=== PATIENT | female | born 1995 | race Caucasian/White ===

== ENCOUNTER 2017-06-03 14:38 | Inpatient (IN) | payer OTHER ==
[~2017-06-03] VITALS: Ht 170.2 cm; Wt 117.5 kg
[~2017-06-03 14:38] MED LIST: HYDR-4003 PO; KLO5T PO; LEVO100C2 PO; LORA1TAB PO; METH500T PO; OXYC-466 PO
[2017-06-03] MEDS ORDERED: Carboprost 250 mCg/mL Inj IM PRN (16:35)
[2017-06-03] MEDS ORDERED: Methylergonovine 0.2 mg/mL Inj IM PRN (16:35)
[2017-06-03] MEDS ORDERED: Sodium Chloride LOK Flush 10 mL Syringe IVFLUSH PRN (16:35)
[2017-06-03] MEDS ORDERED: Hemorrhage Kit, Post Partum XX ONE (16:35)
[2017-06-03] MEDS ORDERED: Lactated Ringer's 1,000 ML IV PRN (16:35)
[2017-06-03] MEDS ORDERED: Oxytocin 30 Units/500 mL LR 30 UNITS in IV Premix 1 EACH IV PRN (16:35)
[2017-06-03] MEDS ORDERED: Oxytocin 10 Unit/mL Inj IM PRN (16:35)
[2017-06-03] MEDS ORDERED: Labetalol 5 mg/mL 4 mL Inj IV PRN (16:45)
[2017-06-03] MEDS ORDERED: PREN1TAB87 PO (17:14)
[2017-06-03] MEDS ORDERED: HYDR-4003 PO (17:15)
[2017-06-03] MEDS ORDERED: FERR-83 PO (17:15)
--- NOTE | 2017-06-03 17:33 | HP ---
[address] [address] HISTORY AND PHYSICAL PATIENT: ALLYSON FELDER : 1995 MR#: [id number] ADMIT: 06/03/2017 JOB ID: [id number] HISTORY OF PRESENT ILLNESS: The patient is a 22-year-old 1 para 0 at 38 weeks and 3 days with estimated due date of June 14, 2017, who is being admitted with abnormal blood pressure, -induced hypertension, biophysical profile 4/8. The patient has been having biophysical profiles because of poor care. She entered care at 33 weeks; did not know that she was until that time. Initial ultrasound at 33 weeks showed suspected IUGR, 3%. Followup ultrasound showed estimated weight 13th percentile and then ultrasound on May 20, 2017 showed estimated weight of 37th percentile. The patient has anxiety for which she has been using clonazepam throughout . surveillance started as soon as she entered care with us. Today's biophysical profile was 4/8. The patient was placed on continuous heart rate monitoring and there was no accelerations for 40 minutes, the heart rate was nonreassuring. PAST MEDICAL HISTORY: Mild hypothyroidism. Synthroid was stopped on April 28, 2017. Mild asthma. Medical history noncontributory. ALLERGIES: SULFA AND CODEINE. FAMILY HISTORY: Diabetes type 2. SOCIAL HISTORY: The patient denies smoking, alcohol, recreational drug use. LABORATORY: labs were reviewed. She is blood type O positive, rubella immune, varicella immune. Group B strep negative. PHYSICAL EXAMINATION: Vital signs: Blood pressure 156/82, pulse 90, respiratory rate 18, temperature 36.7. General: Awake, alert, oriented x3. Anxious. HEENT: PERRLA. Chest: Good respiratory effort. No adventitious sounds. Cardiovascular: Regular rate and rhythm. Abdomen: Gravid. Nondistended, nontender. Extremities: No pitting edema. PLASTER FOREMAN: Vertex presentation. Intact membranes. The cervix is about 50% effaced, fingertip, nondilated, station -3. ASSESSMENT AND PLAN: The patient is a 22-year-old 1 para 0 at 38 weeks and 3 days being admitted for medically indicated induction of labor because of unstable blood pressure and biophysical profile 4/8. Variability of the heart tracing is moderate and no accelerations were seen. The patient will be placed on continuous heart rate monitoring. The cervix is not favorable. Cervical vaginal insert will be placed 10 mg PV 1 dose until morning. We discussed the potential risks and benefits of the induction of labor, possible section in case of failed induction and distress. Informed consent was obtained. The patient was explained that if her blood pressure stays high we may initiate labetalol protocol. Meanwhile we are sending preeclampsia labs and urine for protein/creatinine ratio. Her anxiety is controlled so far, to avoid any possibility of panic attack during labor Xanax p.r.n. was written. KELLID
[2017-06-03 17:39] LABS: Mean Corpuscular Hemoglobin 26.6 pg (27.0-35.0); Mean Corpuscular Volume 80.9 fL (81-100)
[2017-06-03] MEDS ORDERED: ALPRAZolam 0.5 mg Tablet ONE (18:05)
[2017-06-03] MEDS: ALPRAZolam 0.5 mg Tablet PO SCH (18:07)
[2017-06-03] MEDS ORDERED: diphenhydrAMINE 50 mg Capsule PO ONE (22:20)
[2017-06-03] MEDS: Ondansetron 2 mg/mL 2 mL Inj IVPUSH PRN (23:16)
[2017-06-04] MEDS: Ondansetron 2 mg/mL 2 mL Inj IVPUSH PRN ×2 (06:33→13:03)
[2017-06-04] MEDS: ALPRAZolam 0.5 mg Tablet PO SCH ×2 (06:55→23:33)
[2017-06-04] MEDS ORDERED: Lactated Ringer's 1,000 ML IV SCH (07:58)
--- NOTE | 2017-06-04 07:59 | PCM.PNOBIP ---
Subjective Date of Service Jun 04, 2017 Delivery plan: Spontaneous Vaginal Delivery Visit History 22-year-old 1 para 0 at 38 weeks and 3 days with estimated due date of June 14, 2017, who is being admitted with abnormal blood pressure, -induced hypertension, biophysical profile 4/8. The patient has been having biophysical profiles because of poor care. She was late to care at 33 weeks; did not know that she was until that time. Initial ultrasound at 33 weeks showed suspected IUGR, 3%. Followup ultrasound showed estimated weight 13th percentile and then ultrasound on May 20, 2017 showed estimated weight of 37th percentile. The patient has anxiety for which she has been using clonazepam throughout . surveillance started as soon as she entered care with us. Today's biophysical profile was 4/8. The patient was placed on continuous heart rate monitoring and there was no accelerations for 40 minutes, the heart rate was nonreassuring. She has a positive Cannibus urine tox. Subjective Patient is having some baseline anxiety that is responding to xanex. She is currently not having a headache or hand/leg swelling. She states her contractions are about 6-8 minutes apart. She has not had any vaginal fluid drainage or bleeding. Group B Strep Results: Negative Rubella: Immune Blood Type: O RH Type: Positive Labs Laboratory Tests 06/03/17 17:34: White Blood Count 11.2, Red Blood Count 4.51, Hemoglobin 12.0, Hematocrit 36.5, Mean Corpuscular Volume 80.9, Mean Corpuscular Hemoglobin 26.6, Mean Corpuscular Hemoglobin Concent 32.9, Red Cell Distribution Width 13.5, Platelet Count 356 Exam Vital Signs Vital Signs Contraction frequency in minutes: MVUs: Vital Signs: VS reviewed, stable Heart Tracings Heart Tones Baseline 150 bpm Heart Rate Variability: Moderate Heart Rate Accelleration: Present Heart Rate Deceleration: Absent Heart Rate Category: I Tocometry/IUPC Contraction frequency in minutes: MVUs: Sterile Vaginal Exam Cervical Dilation: 1 cm Cervical Effacement: 70 % Station: -3 Exam Abdomen: Fundus firm, Abdomen non-tender Extremities: No cords, No tenderness/swelling, No edema Lungs: Clear to Auscultation Heart: Exam Unremarkable General: Alert, Oriented X3 OB Intrapartum Assessment/Plan Assessment Non reassuring testing (BPP 4/10) Induction of labor Problems: (1) Abnormal test Plan: - continue with induction of labor - will change to cytotec today, cervidil insert removed. - will continue to monitor closely Status: Acute ICD Code: O28.9 (2) Non-reassuring status Status: Acute ICD Code: [id number] Intrapartum Pain Management: May have epidural when desired Pain Evaluation: Adequate Pain Control Attending Statement The patient was seen and examined together with Dr.Brook Woo on 06/04/2017 and I agree with the history, exam and plan as outlined in the note above. Amanda Woo DO Jun 04, 2017 07:00 Domingo Michaels MD Jun 08, 2017 07:55
[2017-06-04] MEDS ORDERED: diphenhydrAMINE 50 mg Capsule PO PRN (08:00)
[2017-06-04] MEDS ORDERED: Misoprostol 25 mCg/0.25 Tablet VAGINAL SCH (08:00)
--- NOTE | 2017-06-04 15:06 | DRSVH ---
PROCEDURE: US OB BIOPHYSICAL PROFILE AND UMBILICAL DOPPLER INDICATIONS: PIH OUTSIDE/PRIOR DATING DATA: Last menstrual period (LMP): 08/21/2017. LMP-based estimated date of delivery (LINA): 05/28/2017. First dating scan (date and location): 04/27/2017 at [facility]. Estimated date of delivery (LINA) from first dating scan: 06/14/2017. TECHNIQUE: Real-time scanning was performed of the fetus for biophysical profile, with image documentation. Col or and pulse Doppler interrogation was also performed of the umbilical artery near its insertion into the placenta. COMPARISON: [facility] Ultrasound, US, US OB BIOPHYSICAL+UMB DOP, 06/03/2017, 13:33. FINDINGS: General: A single living intrauterine gestation is present. Presentation: Vertex. Placenta: Placental position is fundal, without previa. OB-CATERER HELPER Ultrasound Procedure Report Summary Fetus Summary Heart Rate: 158 bpm Gestational Age from initial dating scan: 38 weeks, 4 days Findings(Amniotic Sac) Amniotic Fluid Index (NIKOLAI): 16.80 cm Pelvis and Uterus Cervix Length (Mean): Not well-seen. Biophysical Profile Amniotic Fluid Volume: 2 Breathin Gross Body Movement: 2 Tone: 2 Biophysical Profile Sum Score: 6 Findings(Pelvic Vascular Structure) Umbilical Artery S/D Ratio: 2.78, 1.98, 2.05 IMPRESSION: 1. Biophysical profile score of 6/8 possible points. 2. Normal CORD Doppler. Dictated by: Jacob Mahoney [facility] Interpreted: Heather Nunez MD on 06/04/2017 at 12:56 Approved by: Heather Nunez MD, PhD on 06/04/2017 at 15:03
[2017-06-04] MEDS: fentaNYL-PF 50 mCg/mL 2 mL Inj IVPUSH PRN (21:56)
[2017-06-05] MEDS: fentaNYL-PF 50 mCg/mL 2 mL Inj IVPUSH PRN ×3 (00:55→05:43)
[2017-06-05] MEDS: Ondansetron 2 mg/mL 2 mL Inj IVPUSH PRN (07:07)
--- NOTE | 2017-06-05 08:32 | PCM.HPANE ---
Patient Data Surgeon Admitting Provider:Major Shirley MD Attending Provider:Major Shirley MD Primary Care Physician:Georgiana Kirkpatrick MD Other Provider:Karen Pérez Anesthesia Reason for Visit NST NST Ht/WT & BMI Body Mass Index Allergies Coded Allergies: Sulfa (Sulfonamide Antibiotics) (Verified Allergy, Unknown, swollen tongue and mouth, 08/15/16) codeine (Verified Allergy, Unknown, 08/15/16) Past Anesthesia History Anesthesia History: Denies:: Abnormal Airway Diabetes History Hx Diabetes?: No MRSA MRSA: No Medications Hypertension Medication: No Home Meds Incl Beta Kailey: No Active Scripts oxyCODONE-Acetaminophen 10-325 mg 1 Each Tablet2 Tablet PO Q6H PRN For Pain #50 TABLET Ref 0 Prov:Gold Dodson MD 08/15/16 Lorazepam 1 Mg Tablet1 Mg PO TID PRN For Anxiety #30 TABLET Ref 0 Prov:Gold Dodson MD 08/15/16 Methocarbamol (Robaxin)500 Mg [id number] Mg PO TID #9 TABLET Prov:Wang Licea DO 06/13/16 Reported Medications Hydrocodone-Acetaminophen 5-325 mg 1 Each Tablet1 Tablet PO Q4H PRN For Pain Ref 0 06/03/17 Ferrous Sulfate 325 Mg [id number] Mg PO DAILY 30 Days Ref 0 06/03/17 Vit W-Ca,Fe,FA(<1 mg) ( Vitamins)1 Each Tablet1 Each PO DAILY 06/03/17 Levothyroxine (Tirosint)100 Mcg [id number] Mcg PO DAILY 11/15/15 Hydrocodone-Acetaminophen 5-325 mg 1 Each Tablet1 Tablet PO Q6H PRN For Pain Ref 0 11/15/15 Clonazepam 0.5 Mg Tablet0.5 Mg PO TID PRN For Anxiety Ref 0 11/15/15 History History of ENT Problems?: No HEENT History: Denies:: Abnormal Airway Denture Type: None Teeth Condition: Within Normal Limits Hx of Heart Problems?: No Cardiovascular History: Denies:: Congestive Heart Failure Hypertension Hx of Respiratory Problem?: No Respiratory History: Denies:: Tuberculosis Hx Neurologic Problems?: No Hx of GI Problems?: No Hx of Problems?: No HX of Peritoneal Dialysis: No Female Hx: Positive for:: Currently Hx Musculoskeletal Problems?: Yes Musculoskeletal History: Positive for:: Back Injury Hx of Psycho/Social Problems?: No Hx Surgeries?: No Hx Diabetes: No Other History/Comment Patient seen in extremis when entering room. Hx obtained mostly from mother. Hx of spinal fusion. Hx Alcohol Use: NoHx Substance Use: No Smoking Status: Never Smoker Have You Smoked inLast 12 mo: No Stop/Bang Treated for Sleep Apnea?: No Do You Have a CPAP Machine?: No SHAKILA Risk Assessment: Low Risk, <3 Yes Risk Assessment Category Category 1A: Patient has history of documented sleep apnea, and HAS NOT received any narcotic, sedative or anesthesia administration during this stay. Category 1B: Patient has history of documented sleep apnea, and HAS received any narcotic , sedative or anesthesia administration during this stay Category 2: Patient has SUSPECTED Obstructive Sleep Apnea, and HAS received any narcotic , sedative or anesthesia administration during this stay. Category 3: Patient has SUSPECTED Obstructive Sleep Apnea and HAS NOT received narcotic, sedative or anesthesia administration during this stay. Category 4: Outpatient in Procedural Areas with known sleep apnea or who screen positive for High Risk via the STOP/BANG questionnaire. Exam Exam General Appearance: Oriented X3 HEENT/AIRWAY: MP 2 Lungs: Clear to Auscultation Heart: Exam Unremarkable Meds/Labs/Diagnostics Admission Meds Current Medications Alprazolam (Xanax) 0.5 mg TID PO Last administered on 06/03/17 18:07; Start at 20:30 Dinoprostone (Cervidil Vaginal Insert) 10 mg ONCE ONCE VAGINAL Last administered on 06/03/17 18:07; Start 06/03/17 at 16:35; Stop 06/03/17 at 16:45 ; Status DC Labs Test 06/03/17 16:47 06/03/17 17:14 06/03/17 17:15 06/03/17 17:34 Hold Urine Received (Received) Urine Random Creatinine 21mg/dL (16-392) Urine Random Total Protein 5mg/dL (0-15) Urine Protein/Creatinine Ratio 0.24 (0-200) Urine Opiates Screen Negative Urine Methadone Screen Negative Urine Barbiturates Screen Negative Urine Amphetamines Screen Negative Urine Benzodiazepines Screen Negative Urine Cocaine Metabolite Screen Negative Urine Cannabinoids Screen Positive White Blood Count 11.2th/mm3 (3.8-10.1) Red Blood Count 4.51mil/mm3 (3.90-5.20) Hemoglobin 12.0g/dL (12.0-15.6) Hematocrit 36.5% (35.0-46.0) Mean Corpuscular Volume 80.9fL (81-100) Mean Corpuscular Hemoglobin 26.6pg (27.0-35.0) Mean Corpuscular Hemoglobin Concent 32.9% (32.0-37.0) Red Cell Distribution Width 13.5% (12.3-15.4) Platelet Count 356bil/L (150-400) Uric Acid 6.3mg/dL (2.6-7.2) Aspartate Amino Transf (AST/SGOT) 13U/L (0-50) Alanine Aminotransferase (ALT/SGPT) 10U/L (0-32) Plan Impression Patient chart reviewed, patient interviewed and anesthestic plan with risks, benefits, and alternatives discussed, and informed consent obtained. NPO per Anesth. Guidelines: Yes ASA Physical Status: ASA2 Mod Systemic Disease Anesthetic Plan: Epidural Bene/Risks/Altern/Consents: Yes HP Complete Prior to Induction: Yes Zaheer Salas MD Jun 03, 2017 20:54 Julito Nguyen MD Jun 05, 2017 08:32
--- NOTE | 2017-06-05 08:33 | PCM.ANEP1 ---
Post Anesthesia PACU Phase 1 Assessment Anesthetic Administered: Epidural Level of Alertness: Awake, talking CRUZ's with Equal Strength: No Pain: No Pain Scale Score: 7 Nausea or Vomiting: No CV Function & Hydration Stable: No Airway Device: Oxygen Delivery: Room Air Lungs: Clear to Auscultation PACU Phase 2 Assessment Complications: No Follow up Care: N/A Patient Instructions Provided: N/A Julito Nguyen MD Jun 05, 2017 08:33
[2017-06-05] MEDS: Lactated Ringer's 1,000 ML IV SCH ×2 (08:38→20:47)
[2017-06-05] MEDS ORDERED: Oxytocin 10 Unit/mL Inj IM PRN (08:40)
[2017-06-05] MEDS ORDERED: Hemorrhage Kit, Post Partum XX ONE (08:40)
[2017-06-05] MEDS ORDERED: Oxytocin 30 Units/500 mL LR 30 UNITS in IV Premix 1 EACH IV PRN (08:40)
[2017-06-05] MEDS ORDERED: Carboprost 250 mCg/mL Inj IM PRN (08:40)
[2017-06-05] MEDS ORDERED: Benzocaine (Dermoplast) 20% 60 Gm Spray TOPICAL PRN (08:40)
[2017-06-05] MEDS ORDERED: LANOlin HPA 7 Gm Ointment TOPICAL PRN (08:40)
[2017-06-05] MEDS ORDERED: Methylergonovine 0.2 mg/mL Inj IM PRN (08:40)
[2017-06-05] MEDS: ALPRAZolam 0.5 mg Tablet PO SCH ×4 (09:18→20:30)
[2017-06-05] MEDS: oxyCODONE-Acetamin 5-325 mg Tablet PO PRN ×4 (09:19→21:47)
[2017-06-05] MEDS: Witch Hazel-Glycerin Pads TOPICAL PRN (09:19)
--- NOTE | 2017-06-05 11:03 | OP ---
[address] [address] OPERATIVE REPORT PATIENT: ALLYSON FELDER : 1995 MR#: [id number] ADMIT: 06/03/2017 JOB ID: [id number] DATE OF SURGERY: 06/05/2017 SURGEON: Major Shirley M.D. PREOPERATIVE DIAGNOSIS(ES): A 22-year-old 1, para 0 with gestational hypertension, biophysical profile 4/8, induction of labor. POSTOPERATIVE DIAGNOSIS(ES): A 22-year-old 1, para 1, spontaneous vaginal delivery at term. The patient is a 23-year-old 1, para 1 now, who came to Labor and Delivery on June 03, 2017, for induction of labor because of -induced hypertension and abnormal testing, biophysical profile was 4/8. The heart rate tracing at admission was having moderate variability but no accelerations. The risks and benefits of induction of labor were discussed with the patient and informed consent was obtained. On the cervical check, the cervix was fingertip, nondilated. The station of the head was high -3 to -4. So, following admission, Cervidil vaginal insert was placed for 12 hours and it was removed in the morning of June 04, 2017. At that time the patient was 2 cm dilated, 50% effaced, -2 station. Cook cervical ripening balloon was placed at 1 p.m. on June 04, 2017 and came at 1 a.m. June 05, 2017. The patient was re-examined in the morning of June 05, 2017. At 1 a.m. she was 4 cm dilated, 80% effaced, station -2. Induction was started with oxytocin. The patient received an epidural and when she was examined at 7 a.m. she was fully dilated at station +2. She started pushing at around the same time and underwent spontaneous vaginal delivery at 7:49 a.m. Delivered a female with a weight 2913 g. Apgars 9 at one minute and 9 at five minutes. She had third degree midline laceration, the third stage of labor was fast and disorganized due to anxiety disorder of the patient. The laceration was repaired with three layers of 3-0 Vicryl. The placenta was delivered at 8:04 a.m., was examined to be intact with three-vessel cord. Estimated blood loss was 350 mL.
--- NOTE | 2017-06-05 11:14 | NUR ---
Social Work Note D/A: SECTION HAND received report from senior product development manager that Pt plans to relinquish and adoptive parents are currently on FBC with BB in the room with them. senior product development manager reported that adoption paperwork has not been completed as of yet and adoptive parents had requested to speak with SECTION HAND. P: SECTION HAND noted that no order has yet been entered and explained that this would need to be done prior to SECTION HAND meeting with Pt or family. SECTION HAND explained that as long as a consultation was ordered, SECTION HAND would be able to see Pt and family around 1330 today. Lacey Leal, MANOLO, AAC
--- NOTE | 2017-06-05 16:21 | NUR ---
Social Work Note: Support D/A: Pt is a 22 year old female who delivered BB on 06/05/2017. Pt indicated her intent to relinquish BB to C staff and gave permission for adoptive parents to care for BB once delivered. staff physical therapist requested that BETTING CLERK check in with Pt and with adoptive parents to provide support and assistance as needed. BETTING CLERK met with Pt at bedside. Pt reported that she has supportive family and providers as well as a mental health counselor provided by her adoption agency. Pt indicated that she's feeling sad about giving up BB but explained that she knows this is the best decision for him and remains firm in her decision to relinquish. Pt indicated no further needs at this time BETTING CLERK met with adoptive parents Elida and Manuelito at bedside. Manuelito reported that the paperwork is still in the process of being finalized. Elida indicated that their adoption noxious weeds and pest inspector had requested contact information for BETTING CLERK. BETTING CLERK provided the requested contact information. Elida and Manuelito reported that they had no other questions. P: All parties remain agreeable to this adoption. staff physical therapist, MOB and adoptive parents report that the paperwork for this adoption has not been finalized at this time. MOB and adoptive parents are aware of the procedure for discharge if paperwork is not finalized by discharge. staff physical therapist reports that Elida and Manuelito have been appropriate and affectionate with BB throughout their time in the hospital. BETTING CLERK informed MOB and adoptive parents that she would remain available if any further questions or needs should arise prior to discharge. BETTING CLERK reported this to staff physical therapist. BETTING CLERK to remain available for any further questions or needs that may arise prior to discharge. Lacey Leal, MANOLO, AAC
[2017-06-05] MEDS: Ascorbic Acid 500 mg Tablet PO SCH (18:03)
[2017-06-06] MEDS: Lactated Ringer's 1,000 ML IV SCH (00:38)
[2017-06-06] MEDS: oxyCODONE-Acetamin 5-325 mg Tablet PO PRN ×5 (06:25→22:45)
[2017-06-06 07:15] LABS: Mean Corpuscular Hemoglobin 26.8 pg (27.0-35.0); Mean Corpuscular Volume 82.2 fL (81-100)
[2017-06-06] MEDS ORDERED: Lidocaine 2%-Epi 1:100,000 20 mL Inj ONE (07:27)
[2017-06-06] MEDS ORDERED: Bupivacaine-MPF 0.25% 30 mL Inj ONE (07:27)
[2017-06-06] MEDS: ALPRAZolam 0.5 mg Tablet PO SCH ×3 (07:53→20:09)
[2017-06-06] MEDS: Ascorbic Acid 500 mg Tablet PO SCH ×2 (07:54→18:27)
[2017-06-07] MEDS: oxyCODONE-Acetamin 5-325 mg Tablet PO PRN ×3 (03:20→11:36)
--- NOTE | 2017-06-07 07:05 | PCM.DC.ORT ---
Discharge Summary Date of Service: Jun 07, 2017 Date of Hospital Admission: Jun 03, 2017 at 16:27 Date of Discharge: Jun 07, 2017 Reason for Hospitalization: Vaginal delivery Hospital Course: 22-year-old now 1 para 1 at 38 weeks and 3 days was admitted with abnormal blood pressure, -induced hypertension, biophysical profile 4/8. The patient has been having biophysical profiles because of poor care. She was late to care at 33 weeks; did not know that she was until that time. Initial ultrasound at 33 weeks showed suspected IUGR, 3%. Followup ultrasound showed estimated weight 13th percentile and then ultrasound on May 20, 2017 showed estimated weight of 37th percentile. The patient has anxiety for which she has been using clonazepam throughout . surveillance started as soon as she entered care with us. Today's biophysical profile was 4/8. The patient was placed on continuous heart rate monitoring and there was no accelerations for 40 minutes, the heart rate was nonreassuring. Cervidil insert was left in for 12 hours without change to cervical dilation. Since followed by balloon dilation which was successful dilating to 4 cm. was started and left and Induction was started with oxytocin and received an epidural at 7 AM on . Spontaneous vaginal delivery occurred at 7:49 a.m. Delivered a female with a weight 2913 g. Apgars 9 at one minute and 9 at five minutes. She had third degree midline laceration, the third stage of labor was fast and disorganized due to anxiety disorder of the patient. The laceration was repaired with three layers of 3-0 Vicryl. The placenta was delivered at 8:04 a.m., was examined to be intact with three-vessel cord. Estimated blood loss was 350 mL. Patient has given up the baby for adoption to parents from [place]. Problems: (1) Abnormal test Status: Acute ICD Code: O28.9 (2) Non-reassuring status Status: Acute ICD Code: [id number] Orthopedic Follow up Plan: In Six Weeks in my clinic Discharge Instructions: Continue your vitamin. Do not take more pain medication (Percocet) than is necessary -- less is better. Percocet pills have Tylenol (acetaminophen) in them at 325mg per pill. Do not take Tylenol in addition to your pain medication but should take one or the other. Be sure to follow up in 2 weeks and then again in 6 weeks at [facility]. ( Follow up for without complications is 6 weeks) Pelvic rest for 6 weeks (nothing per vagina including intercourse, tampons) If you have a fever greater than 100.4, please call [facility]. There is always someone institution director to talk to. If you have an increase in bleeding, call [facility]. If you have a lot of bleeding suddenly, especially if you have symptoms of dizziness & weakness with it, get emergency help. If you start experiencing extreme depression, especially if you feel that you are a danger to yourself or your family, seek emergency help. Start to consider what you would like for control/contraceptive in the future. If you would like an IUD or Nexplanon these have to be ordered and prior authorization obtained. You have been through a lot -- BE SURE TO TAKE CARE OF YOURSELF. Clonazepam (Clonazepam) 0.5 Mg Tablet 0.5 MG PO TID PRN PRN For Anxiety Docusate Sodium (Colace) 100 Mg Capsule 100 MG PO BID Ferrous Sulfate (Ferrous Sulfate) 325 Mg Tablet 325 MG PO DAILY Ferrous Sulfate (Feosol) 325 Mg Tablet 325 MG PO BIDWM Hydrocodone-Acetaminophen 5-325 mg (Hydrocodone-Acetaminophen 5-325 mg) 1 Each Tablet 1 TABLET PO Q6H PRN PRN For Pain Hydrocodone-Acetaminophen 5-325 mg (Hydrocodone-Acetaminophen 5-325 mg) 1 Each Tablet 1 TABLET PO Q4H PRN PRN For Pain Ibuprofen (Ibuprofen) 800 Mg Tablet 800 MG PO Q6H PRN PRN For Pain Levothyroxine (Tirosint) 100 Mcg Capsule 100 MCG PO DAILY Lorazepam (Lorazepam) 1 Mg Tablet 1 MG PO TID PRN PRN For Anxiety Methocarbamol (Robaxin) 500 Mg Tablet 500 MG PO TID Vit W-Ca,Fe,FA(<1 mg) ( Vitamins) 1 Each Tablet 1 EACH PO DAILY oxyCODONE-Acetaminophen 10-325 mg (oxyCODONE-Acetaminophen 10-325 mg) 1 Each Tablet 2 TABLET PO Q6H PRN PRN For Pain oxyCODONE-Acetaminophen 5-325 mg (oxyCODONE-Acetaminophen 5-325 mg) 1 Each Tablet 1 TAB PO Q4H PRN PRN For Pain Chilo,[place]age L DO Jun 07, 2017 07:05
[2017-06-07] MEDS: ALPRAZolam 0.5 mg Tablet PO SCH (07:21)
--- NOTE | 2017-06-07 07:23 | PCM.DC.OB ---
Obstetrical Discharge Summary Date of Service Jun 07, 2017 Date of hospital admission Jun 03, 2017 at 16:27 Date of Discharge: Jun 07, 2017 Providers Admitting Physician: Major Shirley MD Primary Care Physician: Georgiana Kirkpatrick MD Attending Physician: Major Shirley MD Diagnosis at Time of Discharge Spontaneous vaginal delivery Problems: (1) Abnormal test Status: Acute ICD Code: O28.9 (2) Non-reassuring status Status: Acute ICD Code: [id number] Brief History and Physical: 22-year-old now 1 para 1 at 38 weeks and 3 days was admitted with abnormal blood pressure, -induced hypertension, biophysical profile 4/8. The patient has been having biophysical profiles because of poor care. She was late to care at 33 weeks; did not know that she was until that time. Initial ultrasound at 33 weeks showed suspected IUGR, 3%. Followup ultrasound showed estimated weight 13th percentile and then ultrasound on May 20, 2017 showed estimated weight of 37th percentile. The patient has anxiety for which she has been using clonazepam throughout . surveillance started as soon as she entered care with us. Today's biophysical profile was 4/8. The patient was placed on continuous heart rate monitoring and there was no accelerations for 40 minutes, the heart rate was nonreassuring. Abdomen: Fundus firm, Abdomen non-tender Extremities: No cords, No tenderness/swelling, No edema Lungs: Clear to Auscultation Heart: Exam Unremarkable General: Alert, Oriented X3 Hospital Course: 22-year-old now 1 para 1 at 38 weeks and 3 days was admitted with abnormal blood pressure, -induced hypertension, biophysical profile 4/8. The patient has been having biophysical profiles because of poor care. She was late to care at 33 weeks; did not know that she was until that time. Initial ultrasound at 33 weeks showed suspected IUGR, 3%. Followup ultrasound showed estimated weight 13th percentile and then ultrasound on May 20, 2017 showed estimated weight of 37th percentile. The patient has anxiety for which she has been using clonazepam throughout . surveillance started as soon as she entered care with us. Today's biophysical profile was 4/8. The patient was placed on continuous heart rate monitoring and there was no accelerations for 40 minutes, the heart rate was nonreassuring. Cervidil insert was left in for 12 hours without change to cervical dilation. Since followed by balloon dilation which was successful dilating to 4 cm. was started and left and Induction was started with oxytocin and received an epidural at 7 AM on . Spontaneous vaginal delivery occurred at 7:49 a.m. Delivered a female with a weight 2913 g. Apgars 9 at one minute and 9 at five minutes. She had third degree midline laceration, the third stage of labor was fast and disorganized due to anxiety disorder of the patient. The laceration was repaired with three layers of 3-0 Vicryl. The placenta was delivered at 8:04 a.m., was examined to be intact with three-vessel cord. Estimated blood loss was 350 mL. Patient has given up the baby for adoption to parents from [place]. Clonazepam (Clonazepam) 0.5 Mg Tablet 0.5 MG PO TID PRN PRN For Anxiety ( Reported) Docusate Sodium (Colace) 100 Mg Capsule 100 MG PO BID Prescribed by: AMANDA WOO DO Ferrous Sulfate (Ferrous Sulfate) 325 Mg Tablet 325 MG PO DAILY (Reported) Ferrous Sulfate (Feosol) 325 Mg Tablet 325 MG PO BIDWM Prescribed by: AMANDA WOO DO Hydrocodone-Acetaminophen 5-325 mg (Hydrocodone-Acetaminophen 5-325 mg) 1 Each Tablet 1 TABLET PO Q6H PRN PRN For Pain (Reported) Hydrocodone-Acetaminophen 5-325 mg (Hydrocodone-Acetaminophen 5-325 mg) 1 Each Tablet 1 TABLET PO Q4H PRN PRN For Pain (Reported) Ibuprofen (Ibuprofen) 800 Mg Tablet 800 MG PO Q6H PRN PRN For Pain Prescribed by: AMANDA WOO DO Levothyroxine (Tirosint) 100 Mcg Capsule 100 MCG PO DAILY (Reported) Lorazepam (Lorazepam) 1 Mg Tablet 1 MG PO TID PRN PRN For Anxiety Prescribed by: YOLI EASTMAN MD Methocarbamol (Robaxin) 500 Mg Tablet 500 MG PO TID Prescribed by: MELANIE STALLINGS DO Vit W-Ca,Fe,FA(<1 mg) ( Vitamins) 1 Each Tablet 1 EACH PO DAILY (Reported) oxyCODONE-Acetaminophen 10-325 mg (oxyCODONE-Acetaminophen 10-325 mg) 1 Each Tablet 2 TABLET PO Q6H PRN PRN For Pain Prescribed by: YOLI EASTMAN MD oxyCODONE-Acetaminophen 5-325 mg (oxyCODONE-Acetaminophen 5-325 mg) 1 Each Tablet 1 TAB PO Q4H PRN PRN For Pain Prescribed by: AMANDA WOO DO Disposition Home Follow-up plan 2 weeks at the [facility] for a blood pressure check and then 6 weeks for post exam. Discharge Diet: No restrictions Discharge Activity-General: No restrictions, Pelvic Rest for 6 weeks, Try not to overdue, Be up and about, Balance rest and activity, Activity as pain allows , Activity as energy allows Amanda Woo DO Jun 07, 2017 07:23
--- NOTE | 2017-06-07 07:42 | PCM.DIOB ---
Obstetrical Disch Instruction Date of Service: Jun 07, 2017 Dates of Hospitalization Date of Hospital Admission Jun 03, 2017 at 16:27 Providers Admitting Physician: Major Shirley MD Primary Care Physician: Georgiana Kirkpatrick MD Attending Physician: Major Shirley MD Discharge Diagnosis Discharge Diagnosis Spontaneous vaginal delivery Nonreassuring biophysical profile Problems: (1) Abnormal test Status: Acute ICD Code: O28.9 (2) Non-reassuring status Status: Acute ICD Code: [id number] Diet Discharge Diet: No restrictions Activity Discharge Activity-General: No restrictions, Pelvic Rest for 6 weeks, Try not to overdue, Be up and about, Balance rest and activity, Activity as pain allows , Activity as energy allows Dressing and Incisional Care Hygiene: May shower, NO bathtub, hot tub or whirlpool (except for sitz baths), Sitz bath Additional Instructions Discharge Instructions Continue your vitamin. Do not take more pain medication (Percocet) than is necessary -- less is better. Percocet pills have Tylenol (acetaminophen) in them at 325mg per pill. Do not take Tylenol in addition to your pain medication but should take one or the other. Both iron and Percocet can give you constipation so you have also been given a prescription for docusate to keep you regular. Be sure to follow up in 2 weeks for a blood pressure check and then again [facility]. Please check your blood pressure daily at home. Please call the women[facility] health clinic if over 160/90. Pelvic rest for 6 weeks (nothing per vagina including intercourse, tampons) If you have a fever greater than 100.4, please call [facility]. There is always someone english as a second language instructor to talk to. If you have an increase in bleeding, call [facility]. If you have a lot of bleeding suddenly, especially if you have symptoms of dizziness & weakness with it, get emergency help. When you see [facility] in two weeks, you will be informed of the results of all the labs. If you start experiencing extreme depression, especially if you feel that you are a danger to yourself or your family, seek emergency help. Please call [facility] if you have blurred vision, unrelenting headache, upper abdominal pain or increased swelling of your extremities. You have been through a lot -- BE SURE TO TAKE CARE OF YOURSELF. Follow Up Plan Follow Up Plan Please follow up with [facility] clinic in 2 weeks for blood pressure check and then stopped 6 weeks for exam Call your provider for: Fever or Chills, Shortness of breath, Heavy vaginal bleeding, Epigastric pain, Excessive constipation, Vaginal discomfort Amanda Woo DO Jun 07, 2017 07:16
[2017-06-07] MEDS ORDERED: OXYC1TAB24 PO (07:49)
[2017-06-07] MEDS ORDERED: IBUP800T28 PO (07:49)
[2017-06-07] MEDS ORDERED: DOCU-41 PO (07:49)
[2017-06-07] MEDS ORDERED: FERR-74 PO (07:50)
[2017-06-07] MEDS: Ascorbic Acid 500 mg Tablet PO SCH (08:17)
[2017-06-07 10:14] VITALS: BP 121/61; RESP 17
[2017-06-07] MEDS: Witch Hazel-Glycerin Pads TOPICAL PRN (11:41)
== END 2017-06-07 12:37 | disposition home or self-care (01) | DRG 542 ==
LOC: FBCO 14:38 → FBC 16:27
PROVIDERS: ADMIT Legal Medicine; ATTEND Legal Medicine
PROC: 3E0P7GC Introduction of Other Therapeutic Substance into Female Reproductive, Via Natural or Artificial Opening (ICD-10-PCS; 2017-06-03)
PROC: 10E0XZZ Delivery of Products of Conception, External Approach (ICD-10-PCS; principal; 2017-06-05)
PROC: 0DQR0ZZ Repair Anal Sphincter, Open Approach (ICD-10-PCS; 2017-06-05)
DX: O13.4 Gestational [pregnancy-induced] hypertension without significant proteinuria, complicating childbirth (principal); O70.20 Third degree perineal laceration during delivery, unspecified; Z3A.38 38 weeks gestation of pregnancy; Z37.0 Single live birth; O99.344 Other mental disorders complicating childbirth; F41.9 Anxiety disorder, unspecified; O28.9 Unspecified abnormal findings on antenatal screening of mother

== ENCOUNTER 2017-06-21 13:15 | Emergency (ER) | payer OTHER ==
[~2017-06-21] VITALS: Ht 170.2 cm; Wt 110.8 kg
[~2017-06-21 13:15] MED LIST changes: +DOCU-41 PO; +FERR-74 PO; +FERR-83 PO; +IBUP800T28 PO; +OXYC1TAB24 PO; +PREN1TAB87 PO
[2017-06-21 13:20] VITALS: BP 134/83; PULSE 79; RESP 14
[2017-06-21 14:41] VITALS: BP 125/60; PULSE 80; RESP 14; O2SAT 98
--- NOTE | 2017-06-21 15:04 | ED.REPORT ---
HPI-Abd Pain F Under 40 Date of Service Jun 21, 2017 ED Provider: Wang Licea DO Pt is a 22 y/o female with a history of recent vaginal delivery who presents to the ED c/o pedal edema onset last night. She gave on 06/05/17, and did not know she was until she was 8 months. Additional symptoms include abdominal cramping, generalized weakness, constipation, and mild intermittent vaginal bleeding. She denies dysuria, urinary frequency, vaginal discharge, fever, or vomiting. She reports taking Oxycodone and Clonazepam this morning. She has chronic back pain related to a previous back surgery for which she takes Oxycodone. Nursing Notes Stated Complaint: POST DELIVERY ISSUES Chief Complaint: General Complaint Allergies: Coded Allergies: Sulfa (Sulfonamide Antibiotics) (Verified Allergy, Unknown, swollen tongue and mouth, 06/21/17) codeine (Verified Allergy, Unknown, 06/21/17) Scheduled Docusate Sodium (Colace) 100 Mg Capsule 100 MG PO BID Ferrous Sulfate (Ferrous Sulfate) 325 Mg Tablet 325 MG PO DAILY Ferrous Sulfate (Feosol) 325 Mg Tablet 325 MG PO BIDWM Levothyroxine (Tirosint) 100 Mcg Capsule 100 MCG PO DAILY Methocarbamol (Robaxin) 500 Mg Tablet 500 MG PO TID Nitrofurantoin Monohyd/M-Cryst (MacroBid) 100 Mg Capsule 100 MG PO BID Vit W-Ca,Fe,FA(<1 mg) ( Vitamins) 1 Each Tablet 1 EACH PO DAILY Scheduled PRN Clonazepam (Clonazepam) 0.5 Mg Tablet 0.5 MG PO TID PRN PRN For Anxiety Hydrocodone-Acetaminophen 5-325 mg (Hydrocodone-Acetaminophen 5-325 mg) 1 Each Tablet 1 TABLET PO Q6H PRN PRN For Pain Hydrocodone-Acetaminophen 5-325 mg (Hydrocodone-Acetaminophen 5-325 mg) 1 Each Tablet 1 TABLET PO Q4H PRN PRN For Pain Ibuprofen (Ibuprofen) 800 Mg Tablet 800 MG PO Q6H PRN PRN For Pain Lorazepam (Lorazepam) 1 Mg Tablet 1 MG PO TID PRN PRN For Anxiety oxyCODONE-Acetaminophen 10-325 mg (oxyCODONE-Acetaminophen 10-325 mg) 1 Each Tablet 2 TABLET PO Q6H PRN PRN For Pain oxyCODONE-Acetaminophen 5-325 mg (oxyCODONE-Acetaminophen 5-325 mg) 1 Each Tablet 1 TAB PO Q4H PRN PRN For Pain General Time Seen by MD: 15:03 Chief Complaint Other (Pedal edema) Hx Obtained From: Patient, Other family... (Mother) Arrived By: Walk-in Sudden in Onset?: No Onset Occurred: Yesterday Symptom Duration: Since onset Progression since Onset: Rapidly improving Location: : Periumbilical: Suprapubic Quality: Painful Severity: Current: Mild Severity: Maximum: Moderate Recent Healthcare: Recent doctor visit, Recent hospitalization Similar Sx Previous: No Past Medical History Past Medical History Delivered baby 06/05/17 L4 and L5 bulged discs Celiac disease Chronic back pain Reports: Asthma Past Surgical History Ovarian cyst removed Back surgery Reports: Tonsillectomy Smoking History Never Smoker Social History Alcohol Use: Denies alcohol use Drug Use: Denies drug use Other Social History: Good social support, Lives with parents, Local resident Occupation going to [employer] Status Independent Review of Systems Constitutional: Reports: Weakness - generalized, Denies: Fever GI: Reports: Abdominal pain, Constipation, Denies: Vomiting Female: Reports: Vaginal bleeding - abnl, Denies: Dysuria, Incontinence, Urinary frequency, Vaginal discharge Musculoskeletal: Reports: Extremity swelling Complete sys rev & neg: except as marked. Physical Exam Initial Vital Signs Vital Signs (First) Date Time Temp Pulse Resp B/P Pulse Ox O2 Delivery O2 Flow Rate FiO2 06/21/17 13:20 37.1 79 14 134/83 Room Air 06/21/17 14:41 98 Initial VS: Reviewed, Vital signs normal Head / Eyes: Atraumatic, Normocephalic Neck: Supple, Full range of motion Extremities: Vascular intact, Neuro intact, No swelling Skin: Warm, Dry, No cyanosis Neurologic: Alert, Oriented, Nonfocal Psychiatric: Mood/affect normal, Behavior normal, Normal thought content General/Constitutional: Awake, Alert, No acute distress, Well appearing, Cooperative, Not toxic appearing Appearance / Presentation: Positive: Obese Respiratory / Chest: Breath sounds NL, Breath sounds = bilat, No respiratory distress, No rales, No rhonchi, No wheezing Cardiovascular: Heart rate NL, Regular rhythm, Heart sounds NL, No murmurs Abdomen: Atraumatic, Soft, No guarding, No rebound Prominent palpable uterus with some tenderness Back: Full range of motion, Painless range of motion Female Genitourinary: Electrical Machine Builder present Very small vaginal introitus secondary to suturing Lower Extremity / Pelvis / MS: Inspection NL, Full range of motion, No swelling , Non-tender, No erythema, No deformity, Neurologic intact, Vascular intact, No edema Ankle / Foot: Inspection NL, No swelling, No edema Interpretation & Diagnostics Lab Results Interpretation Result Diagram: 06/21/17 1527 06/21/17 1527 Test 06/21/17 15:27 06/21/17 15:44 White Blood Count 7.7th/mm3 (3.8-10.1) Red Blood Count 4.23mil/mm3 (3.90-5.20) Hemoglobin 11.3g/dL (12.0-15.6) Hematocrit 34.6% (35.0-46.0) Mean Corpuscular Volume 81.8fL (81-100) Mean Corpuscular Hemoglobin 26.7pg (27.0-35.0) Mean Corpuscular Hemoglobin Concent 32.7% (32.0-37.0) Red Cell Distribution Width 12.9% (12.3-15.4) Platelet Count 395bil/L (150-400) Neutrophils (%) (Auto) 58.6% (40-74) Lymphocytes (%) (Auto) 27.0% (14-46) Monocytes (%) (Auto) 10.9% (4-12) Eosinophils (%) (Auto) 2.7% (0-5) Basophils (%) (Auto) 0.5% (0-3) Sodium Level 139mEq/L (134-144) Potassium Level 4.5mEq/L (3.5-5.2) Chloride Level 103mEq/L (97-108) Carbon Dioxide Level 23mmol/L (18-29) Blood Urea Nitrogen 14mg/dL (6-20) Creatinine 0.77mg/dL (0.57-1.00) Estimat Glomerular Filtration Rate 134mL/min (>59) Glucose Level 77mg/dL (60-99) Calcium Level 8.9mg/dL (8.5-10.1) Total Bilirubin 0.2mg/dL (0.0-1.2) Aspartate Amino Transf (AST/SGOT) 14U/L (0-50) Alanine Aminotransferase (ALT/SGPT) 13U/L (0-32) Alkaline Phosphatase 92U/L (25-150) Total Protein 6.6g/dL (6.4-8.4) Albumin 3.6g/dL (3.4-5.0) Hold [place]ullen Top Tube Received (Received) Urine Color Straw (YELLOW) Urine Appearance Hazy (CLEAR,HAZY) Urine pH 6.0 (5.0-8.0) Urine Specific [place] 1.010 (1.003-1.035) Urine Protein Negativemg/dL (NEG,TRACE) Urine Glucose (UA) Negativemg/dL (NEGATIVE) Urine Ketones Negativemg/dL (NEGATIVE) Urine Occult Blood Large (NEGATIVE) Urine Nitrite Negative (NEGATIVE) Urine Bilirubin Negative (NEGATIVE) Urine Urobilinogen Normalmg/dL (NORMAL) Urine Leukocyte Esterase Large (NEGATIVE) Urine RBC 3-10/hpf (0-2) Urine WBC 11-50/hpf (0-5) Urine Epithelial Cells Few/hpf (NONE-MOD) Urine Crystals None seen (NONE SEEN) Urine Bacteria Few/hpf (NONE-FEW) Urine Hyaline Casts None/lpf (NONE) Urine Granular Casts None seen (NONE SEEN) Urine Waxy Casts None seen (NONE SEEN) Urine Red Blood Cell Casts None seen (NONE SEEN) Urine White Blood Cell Casts None seen (NONE SEEN) Urine Mucus None seen (None Seen) Urine Trichomonas None seen (NONE SEEN) Urine Yeast None (NONE SEEN) Urinalysis Comment None Urine Culture Reflexed Indicated Re-Eval/Medical Decision Med Decision/Clinical Course Med Decision/Clinical Course: Patient's main concern was lowered from the swelling, there is no evidence of heart failure liver failure, kidney failure, chronic syndrome, or preeclampsia. The swelling of her legs at this time is minimal. External pelvic exam is performed without a speculum or bimanual exam, vaginal tears looks like it is healing appropriately. No vaginal discharge. Normal white blood cell count and afebrile. Endometritis seems unlikely. Will treat urinary tract infection. Patient agrees to call [facility] in the morning for close follow-up and return to the ER as needed if worse. Source of Hx: Old records Re-Evaluation/Progress : Time of Eval: 16:20 Patient Status: Condition improved Re-Evaluation/Progress Note: Pt rechecked. Opted not for pelvic exam. Informed pt of plan for discharge. Pt understands and agrees with plan for discharge. F/U instructions and RTER warnings given. All questions addressed. Counseled Regarding: Diagnosis, Lab results, Need for follow-up, When/why to return to ED Discharge & Departure Primary Impression: Dependent edema Disposition: Home Discharge Condition All VS Reviewed: Yes Condition: Stable Additional Instructions: You have a UTI. Take Macrobid for this. Call Dr. Shirley for further evaluation of the swelling in your legs. Return to the ER for high fever, severe trouble breathing, chest pain, or other concerns. Referrals: Georgiana Kirkpatrick MD (PCP) Scribe Attestation Portions of this note were transcribed by Cheri Marie and Ayden Edmond. I, Dr. Licea, personally performed the history, physical exam and medical decision-making; I reviewed and confirmed the accuracy of the information in the transcribed note. copies to: Georgiana Kirkpatrick MD, Timothy Denia CHANDLER Jun 21, 2017 15:04 Cheri Marie Jun 21, 2017 15:23 AYDEN EDMOND Jun 21, 2017 16:41
[2017-06-21 15:39] LABS: BASOPHILS % (AUTO) 0.5 % (0-3); EOSINOPHILS % (AUTO) 2.7 % (0-5); MONOCYTES % (AUTO) 10.9 % (4-12); Mean Corpuscular Hemoglobin 26.7 pg (27.0-35.0); Mean Corpuscular Volume 81.8 fL (81-100); NEUTROPHILS % (AUTO) 58.6 % (40-74); Platelet Count 395 bil/L (150-400)
[2017-06-21 16:00] LABS: APPEARANCE,URINE HAZY (CLEAR,HAZY); COLOR,URINE STRAW (YELLOW); OCCULT BLOOD,URINE LARGE (NEGATIVE); UROBILINOGEN,URINE NORMAL (NORMAL)
[2017-06-21] MEDS ORDERED: Nitrofurantoin Monohyd-Macrocryst 100 mg Capsule PO ONE (16:30)
[2017-06-21 16:37] VITALS: BP 136/61; PULSE 71; RESP 12; O2SAT 98
[2017-06-21] MEDS ORDERED: NITR100 PO (16:39)
[2017-06-21 16:47] VITALS: BP 136/61; PULSE 71; RESP 12; O2SAT 98
== END 2017-06-21 16:48 | disposition home or self-care (01) ==
LOC: SED 13:15
DX: R60.0 Localized edema (principal); Z88.2 Allergy status to sulfonamides; Z88.5 Allergy status to narcotic agent